=== PATIENT | female | born 1970 | race Caucasian/White ===

== ENCOUNTER → 2019-11-04 08:58 | Outpatient (BNVA) | payer BC, SELFPAY | PROVIDERS: Family Provider Nurse Practitioner Family; Visit Provider Nurse Practitioner Family | DX: Z13.6 Encounter for screening for cardiovascular disorders (principal); Z00.00 Encounter for general adult medical examination without abnormal findings; Z68.25 Body mass index [BMI] 25.0-25.9, adult; Z71.3 Dietary counseling and surveillance; Z71.82 Exercise counseling | CPT/HCPCS: 80061; 80323; 82947 ==

== ENCOUNTER → 2019-11-24 16:19 | Outpatient (BNVA) | payer BC, SELFPAY | PROVIDERS: Family Provider Nurse Practitioner Family; Visit Provider Nurse Practitioner Family | DX: Z11.59 Encounter for screening for other viral diseases (principal) | CPT/HCPCS: 87635 ==

== ENCOUNTER → 2021-01-25 14:28 | Outpatient (BNVA) | payer BC, SELFPAY | PROVIDERS: Family Provider Nurse Practitioner Family; Visit Provider Nurse Practitioner Family | DX: Z00.00 Encounter for general adult medical examination without abnormal findings (principal) | CPT/HCPCS: 80053; 80061; 80323; 85025 ==

== ENCOUNTER 2025-01-07 08:46 | Outpatient (CLI) | payer OTHER, SELFPAY ==
--- NOTE | 2025-01-07 08:58 | USR_ITS ---
PROCEDURE INFORMATION: Exam: US Pelvis, Complete, Non-Obstetric Exam date and time: 01/07/2025 10:39 AM Age: 54 years old Clinical indication: Pelvic pain TECHNIQUE: Imaging protocol: Transabdominal pelvic nonobstetric ultrasound. Complete exam. Real time ultrasound with image documentation. COMPARISON: US abdomen complete* [id number] 01/07/2025 10:19 AM FINDINGS: Uterus: The uterus is normal measuring 4.0 x 4.4 x 7.7 cm. Endometrium measures 5 mm. Nabothian cysts. Right ovary/adnexa: Right ovary measures 1.2 x 1.6 x 1.8 cm with normal perfusion. Left ovary/adnexa: Left ovary measures 3.3 x 2.8 x 3.3 cm with normal perfusion. Dominant ovarian follicle. Intraperitoneal space: No free fluid. Urinary bladder: Normal. US/US pelvic complete* [id number] IMPRESSION: No acute abnormality.
--- NOTE | 2025-01-07 08:58 | US_ITS ---
WS: [id number] ULTRASOUND ABDOMEN CLINICAL INFORMATION: PELVIC PAIN COMPARISON: None. FINDINGS: Liver Size: Normal. Craniocaudal length: 14.8 cm. Echogenicity: Normal. Surface nodularity: None. Mass (size and location): None. Normal hepatopedal flow in the main portal vein Bile ducts Intrahepatic ducts: Normal. Common bile duct diameter: 0.3 cm. Gallbladder Normal. Gallstones: None. Gallbladder sludge: None. Gallbladder wall thickening: None. Pericholecystic fluid: None. Sonographic Snachez sign: Absent. Pancreas Normal as visualized. Spleen Splenomegaly: None. Craniocaudal length: 9.6 cm. Right kidney: Normal. Hydronephrosis: None. Size: 8.5 cm x 3.2 cm x 4.6 cm Left kidney: Normal. Hydronephrosis: None. Size: 10.0 cm x 1.1 cm x 4.6 cm. Abdominal aorta and IVC Visualized portions are normal. Ascites: None. US/US abdomen complete* [id number] IMPRESSION: Normal abdominal ultrasound
--- NOTE | 2025-01-07 08:58 | MM_ITS ---
WS: [id number] BILATERAL SCREENING DIGITAL TOMOSYNTHESIS MAMMOGRAM WITH CAD HISTORY: SCREENING COMPARISON: 07/28/2013 Bilateral CC and MLO views with tomosynthesis and synthetic mammography submitted. Computer aided detection analyzed. Breast composition: The breasts are heterogeneously dense, which may obscure small masses. No suspicious masses, microcalcifications or architectural distortion. Numerous scattered asymmetries and calcifications. No areas of distortion. MM/MM scr BI tomosynthesis [id number] IMPRESSION: BI-RADS: 2 - Benign FOLLOW UP: 1 Year Follow-up
== END 2025-01-07 08:47 | disposition home or self-care (01) ==
PROVIDERS: Visit Provider Nurse Practitioner Family
DX: Z12.31 Encounter for screening mammogram for malignant neoplasm of breast (principal); N83.02 Follicular cyst of left ovary; R92.333 Mammographic heterogeneous density, bilateral breasts; R92.1 Mammographic calcification found on diagnostic imaging of breast; N85.8 Other specified noninflammatory disorders of uterus
CPT/HCPCS: 76700; 76856; 77063; 77067

== ENCOUNTER → 2025-01-14 16:56 | Outpatient (BNVA) | payer OTHER, SELFPAY | PROVIDERS: Visit Provider Nurse Practitioner Women's Health | DX: Z12.4 Encounter for screening for malignant neoplasm of cervix (principal); R30.0 Dysuria | CPT/HCPCS: 87086; 87624 ==